=== PATIENT | male | born 1960 | race Caucasian/White ===

== ENCOUNTER → 2018-04-30 | Outpatient (CLI) | payer MEDICARE, OTHER ==
[~2018-04-30] MED LIST: ALLO100T30 PO; AMLO10TA6 PO; CALC0.25 PO; CALC667T PO; CALCIUM PO; CHOL400T55 PO; GLUC1TAB55 PO; IRON1TAB62 PO; REGADENOSON 0.4 MG/5 ML SYRINGE ONE; SODI650T PO
== END | disposition home or self-care (01) ==
LOC: CFH 12:57
PROVIDERS: ATTEND Family Medicine
DX: N18.5 Chronic kidney disease, stage 5 (principal)
CPT/HCPCS: 78452; 93017; A9502; J2785

== ENCOUNTER → 2020-04-17 | Outpatient (CLI) | payer MEDICARE, OTHER ==
[~2020-04-17] MED LIST changes: +AMLO-211 PO; -AMLO10TA6 PO; +ASCO500T8 PO; +CALC200T3 PO; -CALC667T PO; +CALC667T4 PO; +MULT-758 PO; -REGADENOSON 0.4 MG/5 ML SYRINGE ONE; +SEVE800T7 PO; +SUCR500T PO; +ZINC50CA PO
[2020-04-17 09:33] LABS: BASOPHILS % (AUTO) 1 % (0-1); EOSINOPHILS % (AUTO) 3 % (1-7); LYMPHOCYTES % (AUTO) 12 % (22-44); MEAN CORPUSCULAR HEMOGLOBIN 32.6 pg (27.5-34.5); MEAN CORPUSCULAR HGB CONC 33.8 g/dL (33.2-36.2); MEAN PLATELET VOLUME 6.8 fL (7.4-10.4); MONOCYTES % (AUTO) 14 % (2-9); NEUTROPHILS % (AUTO) 70 % (42-75); PLATELET COUNT 186 x10^3/uL (130-400); RED BLOOD COUNT 3.72 x10^6/uL (4.38-5.82); RED CELL DISTRIBUTION WIDTH 14.5 % (9.4-14.8)
[2020-04-17 09:34] LABS: MD NO
[2020-04-17 09:40] LABS: PROTHROMBIN TIME 10.6 Seconds (9.6-11.5)
[2020-04-17 09:42] LABS: ALBUMIN 3.6 g/dL (3.4-5.0); ANION GAP 8 mmol/L (5-15); CALCIUM 8.4 mg/dL (8.5-10.1); CHLORIDE 102 mmol/L (98-107)
[2020-04-17 09:57] LABS: ALANINE AMINOTRANSFERASE 14 U/L (12-78); ALKALINE PHOSPHATASE 85 U/L (45-117); BILIRUBIN,TOTAL 0.5 mg/dL (0.2-1.0); TOTAL PROTEIN 7.2 g/dL (6.4-8.2)
== END | disposition home or self-care (01) ==
LOC: STAR 07:43
PROVIDERS: ATTEND Surgery
DX: Z01.812 Encounter for preprocedural laboratory examination (principal); Z20.828 Contact with and (suspected) exposure to other viral communicable diseases
CPT/HCPCS: 36415; 71046; 80053; 85025; 85610; 85730; 87635; 93005

== ENCOUNTER 2020-04-23 05:36 | Day surgery (SDC) | payer MEDICARE, OTHER ==
[~2020-04-23] VITALS: Ht 182.9 cm; Wt 108.8 kg
[2020-04-23 06:21] VITALS: BP 159/89
[2020-04-23] MEDS ORDERED: CHLORHEXIDINE 15 ML UDC MM ONE (06:30)
[2020-04-23] MEDS ORDERED: LACTATED RINGERS 1,000 ML IV SCH (06:30)
[2020-04-23] MEDS ORDERED: LIDOCAINE-MPF 1%, 2ML INFIL ONE (06:30)
[2020-04-23] MEDS ORDERED: LIDOCAINE 2%, 20ML ONE (07:10)
[2020-04-23 07:12] LABS: ALBUMIN 3.7 g/dL (3.4-5.0); ANION GAP 13 mmol/L (5-15); CALCIUM 8.7 mg/dL (8.5-10.1); CHLORIDE 100 mmol/L (98-107)
[2020-04-23 07:16] LABS: ALANINE AMINOTRANSFERASE 15 U/L (12-78); ALKALINE PHOSPHATASE 87 U/L (45-117); BILIRUBIN,TOTAL 0.5 mg/dL (0.2-1.0); TOTAL PROTEIN 7.2 g/dL (6.4-8.2)
[2020-04-23] MEDS ORDERED: VISIPAQUE 270 MG/ML, 50ML BOTTLE ONE (07:30)
[2020-04-23] MEDS ORDERED: FENTANYL PF 100 MCG/2ML ONE ×2 (07:35→10:28)
[2020-04-23] MEDS ORDERED: PHENYLEPHRINE 10 MG/ML ONE (07:36)
[2020-04-23] MEDS ORDERED: FENTANYL PF 250 MCG/5ML ONE (08:33)
[2020-04-23] MEDS ORDERED: SUCCINYLCHOLINE 20 MG/ML, 10ML ONE (10:13)
[2020-04-23] MEDS ORDERED: ONDANSETRON 2MG/ML, 2ML ONE (10:13)
[2020-04-23] MEDS ORDERED: GLYCOPYRROLATE 0.2MG/1ML, 5ML ONE (10:13)
[2020-04-23] MEDS ORDERED: DEXAMETHASONE 4 MG/ML, 1ML ONE (10:13)
[2020-04-23] MEDS ORDERED: ROCURONIUM 10MG/ML,5ML ONE (10:13)
[2020-04-23] MEDS ORDERED: PROPOFOL 10 MG/ML, 20ML ONE (10:13)
[2020-04-23] MEDS ORDERED: CEFAZOLIN 1,000 MG ONE (10:13)
[2020-04-23] MEDS ORDERED: NEOSTIGMINE 1 MG/ML, 10ML ONE (10:13)
[2020-04-23] MEDS ORDERED: TRIA15OI TP (10:33)
[2020-04-23] MEDS ORDERED: HYDROmorphone 1 MG/ML, 1ML INJ IVPush PRN (11:00)
[2020-04-23] MEDS ORDERED: ONDANSETRON 2MG/ML, 2ML IVPush PRN (11:00)
[2020-04-23] MEDS ORDERED: FENTANYL PF 100 MCG/2ML IV PRN (11:00)
[2020-04-23] MEDS ORDERED: LABETALOL 5MG/ML, 20ML IV PRN (11:00)
[2020-04-23] MEDS ORDERED: MEPERIDINE/PF 25MG/0.5ML IVPush PRN (11:00)
[2020-04-23] MEDS ORDERED: hydrALAzine 20 MG/ML, 1ML IV PRN (11:00)
[2020-04-23] MEDS ORDERED: PROMETHAZINE 25 MG/ML, 1ML IVPush PRN (11:00)
[2020-04-23] MEDS ORDERED: OXYcodone 5 MG/5 ML ORAL.SOL UDC PO PRN (11:00)
== END 2020-04-23 13:30 | disposition home or self-care (01) ==
LOC: OUT 05:36
PROVIDERS: ATTEND Surgery
DX: T82.858A Stenosis of other vascular prosthetic devices, implants and grafts, initial encounter (principal); I82.290 Acute embolism and thrombosis of other thoracic veins; I12.0 Hypertensive chronic kidney disease with stage 5 chronic kidney disease or end stage renal disease; N18.6 End stage renal disease; G47.30 Sleep apnea, unspecified; E66.3 Overweight; Z79.899 Other long term (current) drug therapy; Z99.2 Dependence on renal dialysis; Z84.1 Family history of disorders of kidney and ureter; Y83.8 Other surgical procedures as the cause of abnormal reaction of the patient, or of later complication, without mention of misadventure at the time of the procedure
CPT/HCPCS: 36415; 36901; 36908; 75820; 80053; C1725; C1751; C1769; C1773; C1876; C1894; J0330; J0690; J1100; J2370; J2405; J2704; J2710; J3010; J7120; Q9966; 37212; 37236; 37238

== ENCOUNTER 2020-05-13 07:40 | Emergency (ER) | payer MEDICARE, OTHER ==
[~2020-05-13] VITALS: Ht 185.4 cm; Wt 110.5 kg
[~2020-05-13 07:40] MED LIST changes: +TRIA15OI TP
[2020-05-13 07:44] VITALS: BP 129/63
== END 2020-05-13 08:55 | disposition home or self-care (01) ==
LOC: ED 08:42
DX: T85.698A Other mechanical complication of other specified internal prosthetic devices, implants and grafts, initial encounter (principal)
CPT/HCPCS: 99281

== ENCOUNTER 2020-05-15 08:49 | Emergency (ER) | payer MEDICARE, OTHER ==
[~2020-05-15] VITALS: Ht 185.4 cm; Wt 108.2 kg
--- NOTE | 2020-05-15 08:57 | NUR ---
THIS IS A 60 YEAR OLD MALE WHO C/O OF LABS DONE YESTERDAY AT [facility] W/ HGB 6.0, PT DENIES SOB, CP, FATIGUE, DIZZINESS. HX: KIDNEY TRANSPLANT X1 WEEK
--- NOTE | 2020-05-15 08:58 | NUR ---
EXECUTIVE COORDINATOR: RECORDS REQUEST SIGNED AND GIVEN TO MT TO FAX.
[2020-05-15 10:04] LABS: BASOPHILS % (AUTO) 0 % (0-1); EOSINOPHILS % (AUTO) 2 % (1-7); LYMPHOCYTES % (AUTO) 8 % (22-44); MEAN CORPUSCULAR HEMOGLOBIN 33.8 pg (27.5-34.5); MEAN CORPUSCULAR HGB CONC 34.8 g/dL (33.2-36.2); MEAN PLATELET VOLUME 7.7 fL (7.4-10.4); MONOCYTES % (AUTO) 7 % (2-9); NEUTROPHILS % (AUTO) 83 % (42-75); PLATELET COUNT 211 x10^3/uL (130-400); RED BLOOD COUNT 1.86 x10^6/uL (4.38-5.82); RED CELL DISTRIBUTION WIDTH 16.1 % (9.4-14.8)
[2020-05-15 10:11] LABS: ANION GAP 10 mmol/L (5-15); CALCIUM 7.7 mg/dL (8.5-10.1); CHLORIDE 94 mmol/L (98-107)
[2020-05-15 10:36] LABS: MD SCAN
[2020-05-15 13:10] VITALS: BP 127/66
[2020-05-15 13:25] VITALS: BP 111/72
--- NOTE | 2020-05-15 15:20 | NUR ---
REPORT RECEIVED FROM ROSEANN CASTRO. 1ST UNIT PRBCS INFUSING W/ APPROX 50ML LEFT. 2ND UNIT REQUESTED FROM [facility]. PT RESTING ON GURNEY W/ CALL LIGHT IN REACH AND SIDE RAILS UPX2. MYAH STYLES. FAMILY AT BEDSIDE.
--- NOTE | 2020-05-15 15:22 | NUR ---
Report given to GLORIA March.
[2020-05-15 15:36] VITALS: BP 110/57
[2020-05-15 15:51] VITALS: BP 129/60
--- NOTE | 2020-05-15 16:28 | NUR ---
PT RESTING ON GURNEY W/ CALL LIGHT IN REACH AND SIDE RAILS UPX2. FAMILY AT BEDSIDE, RESP EVEN AND UNLABORED, MYAH.
[2020-05-15 17:09] VITALS: BP 149/79
--- NOTE | 2020-05-15 17:15 | NUR ---
TRANSFUSION ENDED. PT VSS, NADN. PIV REMOVED, PT INSTRUCTED TO CHANGE.
--- NOTE | 2020-05-15 17:44 | NUR ---
Patient given discharge instructions and they have confirmed that they understand the instructions. Patient ambulatory with steady gait.
== END 2020-05-15 17:45 | disposition home or self-care (01) ==
LOC: ED 13:19
DX: D84.9 Immunodeficiency, unspecified (principal); D63.8 Anemia in other chronic diseases classified elsewhere; R10.9 Unspecified abdominal pain; R53.1 Weakness; Z99.2 Dependence on renal dialysis
CPT/HCPCS: 36415; 36430; 80048; 85025; 86850; 86900; 86923; 99285; P9040